=== PATIENT | female | born 1970 | race Caucasian/White ===

== ENCOUNTER 2017-06-29 20:59 | Observation (INO) | payer OTHER ==
[~2017-06-29] VITALS: Ht 162.6 cm; Wt 82.0 kg
[2017-06-29 21:01] VITALS: BP 120/84; PULSE 87; RESP 16; TEMP 98.6; O2SAT 98
--- NOTE | 2017-06-29 22:04 | RADRPT ---
EXAM DATE/TIME: 06/29/2017 21:31 [facility] COMPARISON: No previous studies available for comparison. INDICATIONS : Chest pain and headache MEDICAL HISTORY : None. SURGICAL HISTORY : None. ENCOUNTER: Initial ACUITY: 1 day PAIN SCORE: 10/10 LOCATION: Bilateral chest FINDINGS: PA and lateral views of the chest demonstrate the lungs to be symmetrically aerated without evidence of mass, infiltrate or effusion. The cardiomediastinal contours are unremarkable. Osseous structure s are intact. CONCLUSION: 1. No active disease. Tashi Cardona MD on June 29, 2017 at 22:01 Board Certified Radiologist. This report was verified electronically.
--- NOTE | 2017-06-29 22:15 | RADRPT ---
EXAM DATE/TIME: 06/29/2017 21:34 [facility] COMPARISON: No previous studies available for comparison. INDICATIONS : Dizziness. RADIATION DOSE: 56.77 CTDIvol (mGy) MEDICAL HISTORY : None SURGICAL HISTORY : None. ENCOUNTER: Initial ACUITY: 1 day PAIN SCALE: 0/10 LOCATION: cranial TECHNIQUE: Multiple contiguous axial images were obtained of the head. Using automated exposure control and adj ustment of the mA and/or kV according to patient size, radiation dose was kept as low as reasonably a chievable to obtain optimal diagnostic quality images. DICOM format image data is available electro nically for review and comparison. FINDINGS: CEREBRUM: The ventricles are normal for age. No evidence of midline shift, mass lesion, hemorrhage or acute in farction. No extra-axial fluid collections are seen. POSTERIOR FOSSA: The cerebellum and brainstem are intact. The 4th ventricle is midline. The cerebellopontine angle i s unremarkable. EXTRACRANIAL: The visualized portion of the orbits is intact. SKULL: The calvaria is intact. No evidence of skull fracture. CONCLUSION: 1. No acute intracranial abnormalities. Retention cysts in both maxillary sinuses Tashi Cardona MD on June 29, 2017 at 22:12 Board Certified Radiologist. This report was verified electronically.
[2017-06-30 00:55] VITALS: BP 110/63; PULSE 74; RESP 20; O2SAT 96
[2017-06-30 01:09] LABS: AUTOMATED NEUTROPHIL # 6.3 TH/MM3 (1.8-7.7); BASOPHIL # 0.2 TH/MM3 (0-0.2); BASOPHIL % 2.1 % (0.0-2.0); EOSINOPHIL # 0.1 TH/MM3 (0-0.4); EOSINOPHIL % 1.2 % (0.0-4.0); HEMATOCRIT 42.4 % (35.0-46.0); HEMOGLOBIN 14.5 GM/DL (11.6-15.3); LYMPH % 34.5 % (9.0-44.0); LYMPHOCYTE # 3.8 TH/MM3 (1.0-4.8); MEAN CELL VOLUME 96.8 FL (80.0-100.0); MEAN CORPUSCULAR HEMOGLOBIN 33.1 PG (27.0-34.0); MEAN CORPUSCULAR HGB CONC 34.2 % (32.0-36.0); MEAN PLATELET VOLUME 7.9 FL (7.0-11.0); MONO % 4.9 % (0.0-8.0); MONOCYTE # 0.5 TH/MM3 (0-0.9); NEUT % 57.3 % (16.0-70.0); PLATELET COUNT 252 TH/MM3 (150-450); RED BLOOD COUNT 4.37 MIL/MM3 (4.00-5.30); RED CELL DISTRIBUTION WIDTH 12.7 % (11.6-17.2)
[2017-06-30 01:32] LABS: ALBUMIN 3.6 GM/DL (3.4-5.0); ALT (GPT) 12 U/L (10-53); AST (GOT) 9 U/L (15-37); BLOOD UREA NITROGEN 8 MG/DL (7-18); CALCIUM 8.7 MG/DL (8.5-10.1); CHLORIDE 107 MEQ/L (98-107); CREATININE 0.63 MG/DL (0.50-1.00); GLOMERULAR FILTRATION RATE 102 ML/MIN (>89); GLUCOSE,RANDOM 106 MG/DL (74-106); SODIUM (NA) 139 MEQ/L (136-145)
[2017-06-30 01:36] LABS: ALKALINE PHOSPHATASE 80 U/L (45-117); TOTAL BILIRUBIN ADULT 0.7 MG/DL (0.2-1.0); TOTAL PROTEIN 6.9 GM/DL (6.4-8.2); TROPONIN I LESS THAN 0.02 NG/ML (0.02-0.05)
--- NOTE | 2017-06-30 02:02 | PD ---
HPI Chief Complaint: Chest Pain Time Seen by Provider: 02:01 Travel History International Travel<30 days: No Contact w/Intl Traveler<30days: No Traveled to known affect area: No History of Present Illness HPI 47-year-old female came to the emergency room with history of dizziness that started this morning. Patient describes the dizziness as feeling like the room was moving. This started around 6:30 in the morning. She went to work and the dizziness continued. By the mid day she started getting headache which she describes as bitemporal and frontal area. During this patient also was getting left-sided chest pain that would come and go. The chest pain was sharp in nature and lasted for a few seconds without any radiation. Patient says that she has history of headache that she gets usually once a month and associates those with her menstrual cycle. The dizziness is unusual for her. She does get chest pain occasionally as well. She attributes it to her cardiomyopathy during her 15 years ago. Patient does not have a family psychologist. She is not on any medications. She is a smoker one pack per day. [facility] Past Medical History Narrative Medical List of her past medical, surgical, social and family history is reviewed from the nursing note. Cardiovascular Problems: Yes (cardiomyopathy 2009) Tetanus Vaccination: Unknown Influenza Vaccination: No ?: Not LMP: 06/10/17 Past Surgical History Gynecologic Surgery: Yes () Social History Alcohol Use: Yes (occa) Tobacco Use: Yes (6 cig/day) Substance Use: No Allergies-Medications (Allergen,Severity, Reaction): Coded Allergies: No Known Allergies (Unverified , 06/29/17) Comments No known drug allergies. Narrative Medication Awaiting for the nurse to do the med reconciliation. Review of Systems Except as stated in HPI: all other systems reviewed are Neg Cardiovascular: Positive: Chest Pain or Discomfort Neurologic: Positive: Dizziness, Headache Physical Exam Narrative GENERAL: Fast asleep but woke up upon calling her name. Mild distress SKIN: Focused skin assessment warm/dry. HEAD: Atraumatic. Normocephalic. EYES: Pupils equal and round. No scleral icterus. No injection or drainage. ENT: No nasal bleeding or discharge. Mucous membranes pink and moist. NECK: Trachea midline. No JVD. CARDIOVASCULAR: Regular rate and rhythm. No murmur appreciated. RESPIRATORY: No accessory muscle use. Clear to auscultation. Breath sounds equal bilaterally. GASTROINTESTINAL: Abdomen soft, non-tender, nondistended. Hepatic and splenic margins not palpable. MUSCULOSKELETAL: No obvious deformities. No clubbing. No cyanosis. No edema. NEUROLOGICAL: Awake and alert. No obvious cranial nerve deficits. Motor grossly within normal limits. Normal speech. PSYCHIATRIC: Appropriate mood and affect; insight and judgment normal. Data Data Last Documented VS Vital Signs Date Time Temp Pulse Resp B/P (MAP) Pulse Ox O2 Delivery O2 Flow Rate FiO2 06/30/17 02:17 96 21 06/30/17 00:55 74 20 110/63 (79) Room Air 06/29/17 21:01 98.6 Orders Orders Electrocardiogram (06/29/17 21:20) Ckmb (Isoenzyme) Profile (06/29/17 21:20) Complete Blood Count With Diff (06/29/17 21:20) Comprehensive Metabolic Panel (06/29/17 21:20) Magnesium (Mg) (06/29/17 21:20) Prothrombin Time / Inr (Pt) (06/29/17 21:20) Act Partial Throm Time (Ptt) (06/29/17 21:20) Troponin I (06/29/17 21:20) Chest, Pa & Lat (06/29/17 21:20) Ct Brain W/O Iv Contrast(Rout) (06/29/17 ) Prochlorperazine Inj (Compazine Inj) (06/30/17 02:15) Sodium Chlor 0.9% 1000 Ml Inj (Ns 1000 M (06/30/17 02:15) Acetaminophen (Tylenol) (06/30/17 02:15) Admit Order (Ed Use Only) (06/30/17 02:14) Place In Observation (06/30/17 02:14) Activity Bed Rest With Brp (06/30/17 02:14) Vital Signs (Adult) Q4H (06/30/17 02:14) Cardiac Rhythm .As Directed (06/30/17 02:14) Notify Dr: Other .PRN (06/30/17 02:14) Notify Parameters (06/30/17 02:14) Resp Oxygen Nasal Cannula (06/30/17 ) Diet Heart Healthy (06/30/17 Breakfast) Ckmb (Isoenzyme) Profile (06/30/17 02:14) Ckmb (Isoenzyme) Profile (06/30/17 05:14) Troponin I (06/30/17 02:14) Troponin I (06/30/17 05:14) Electrocardiogram (06/30/17 02:14) Electrocardiogram (06/30/17 05:14) ^ Obtain (06/30/17 02:14) Sodium Chloride 0.9% Flush (Ns Flush) (06/30/17 02:15) Sodium Chloride 0.9% Flush (Ns Flush) (06/30/17 09:00) Acetaminophen (Tylenol) (06/30/17 02:15) Ondansetron Inj (Zofran Inj) (06/30/17 02:15) Nitroglycerin Sl (Nitrostat Sl) (06/30/17 02:15) Home Health Aid / Telemetry DOTTIE.Q8H (06/30/17 02:14) Aspirin Chew (Aspirin Chew) (06/30/17 02:15) Labs Laboratory Tests Test 06/30/17 00:50 White Blood Count 11.0 TH/MM3 Red Blood Count 4.37 MIL/MM3 Hemoglobin 14.5 GM/DL Hematocrit 42.4 % Mean Corpuscular Volume 96.8 FL Mean Corpuscular Hemoglobin 33.1 PG Mean Corpuscular Hemoglobin Concent 34.2 % Red Cell Distribution Width 12.7 % Platelet Count 252 TH/MM3 Mean Platelet Volume 7.9 FL Neutrophils (%) (Auto) 57.3 % Lymphocytes (%) (Auto) 34.5 % Monocytes (%) (Auto) 4.9 % Eosinophils (%) (Auto) 1.2 % Basophils (%) (Auto) 2.1 % Neutrophils # (Auto) 6.3 TH/MM3 Lymphocytes # (Auto) 3.8 TH/MM3 Monocytes # (Auto) 0.5 TH/MM3 Eosinophils # (Auto) 0.1 TH/MM3 Basophils # (Auto) 0.2 TH/MM3 CBC Comment DIFF FINAL Differential Comment Prothrombin Time 10.0 SEC Prothromb Time International Ratio 1.0 RATIO Activated Partial Thromboplast Time 28.1 SEC Blood Urea Nitrogen 8 MG/DL Creatinine 0.63 MG/DL Random Glucose 106 MG/DL Total Protein 6.9 GM/DL Albumin 3.6 GM/DL Calcium Level 8.7 MG/DL Magnesium Level 2.0 MG/DL Alkaline Phosphatase 80 U/L Aspartate Amino Transf (AST/SGOT) 9 U/L Alanine Aminotransferase (ALT/SGPT) 12 U/L Total Bilirubin 0.7 MG/DL Sodium Level 139 MEQ/L Potassium Level 3.9 MEQ/L Chloride Level 107 MEQ/L Carbon Dioxide Level 27.0 MEQ/L Anion Gap 5 MEQ/L Estimat Glomerular Filtration Rate 102 ML/MIN Total Creatine Kinase 46 U/L Troponin I LESS THAN 0.02 NG/ML MDM Medical Decision Making Medical Screen Exam Complete: Yes Emergency Medical Condition: Yes Medical Record Reviewed: Yes Interpretation(s) Twelve-lead EKG was reviewed by me. Normal sinus rhythm, normal axis, nonspecific ST-T wave changes. Heart rate of 71 bpm. Differential Diagnosis Non-STEMI, ACS, headache NOS Narrative Course 2:19 AM patient had blood test and CAT scan initiated in triage which were all done by the time she came to the emergency room. They are all within normal limits. I've ordered for 1 L of IV fluid bolus, IV Compazine and by mouth Tylenol for her headache. My concern however is her chest pain since she has never been worked up for this and she has risk factor in the form of her smoking and middle age. I discussed this with the patient and recommended observation in the chest pain center in to be seen by the family psychologist in the morning. She has agreed. Procedures EKG Prior to Arrival: No Diagnosis Primary Impression: Chest pain Qualified Codes: R07.9 - Chest pain, unspecified Additional Impression: Headache Qualified Codes: R51 - Headache Admitting Information Admitting Physician Requests: Observation Betsy Kraus MD Jun 30, 2017 02:02
[2017-06-30] MEDS ORDERED: ONDANSETRON HCL 4 MG/2 ML VIAL IV PUSH PRN ×2 (02:15→07:30)
[2017-06-30] MEDS ORDERED: ASPIRIN 81 MG CHEW TAB CHEW ONE (02:15)
[2017-06-30] MEDS ORDERED: NITROGLYCERIN 0.4 MG SL 25 TABS/BTL SL PRN ×2 (02:15→07:30)
[2017-06-30] MEDS ORDERED: ACETAMINOPHEN 325 MG TAB PO ONE (02:15)
[2017-06-30] MEDS ORDERED: ACETAMINOPHEN 500 MG CPLT PO PRN ×2 (02:15→07:30)
[2017-06-30] MEDS ORDERED: PROCHLORPERAZINE INJ 10 MG/2 ML VIAL IV PUSH ONE (02:15)
[2017-06-30] MEDS ORDERED: SODIUM CHLORIDE 0.9% FLUSH 10 ML FLUSH IV FLUSH PRN (02:15)
[2017-06-30] MEDS ORDERED: SODIUM CHLOR 0.9% 1000 ML INJ 1,000 ML IV ONE (02:15)
[2017-06-30 02:17] VITALS: O2SAT 96
[2017-06-30 03:50] VITALS: BP 96/55; PULSE 96; RESP 18; TEMP 98.5; O2SAT 98
[2017-06-30 04:01] LABS: TROPONIN I LESS THAN 0.02 NG/ML (0.02-0.05)
[2017-06-30 05:47] LABS: TROPONIN I LESS THAN 0.02 NG/ML (0.02-0.05)
[2017-06-30 07:49] VITALS: BP 93/51; PULSE 80; RESP 18; TEMP 98.4; O2SAT 95
--- NOTE | 2017-06-30 07:53 | HHI.HP ---
[facility] Primary Care Physician Kenzie Thornton M.D. Chief Complaint Headache and chest pain History of Present Illness 47 year old female without any significant past medical history who is a current smoker presents to ER for further evaluation of headache and chest pain. Upon awakening yesterday morning she felt dizzy. Dizziness lingered most of day later developing a migraine headache in afternoon. Went to bed early around 7pm. While laying in bed developed left anterior chest pain described " as pain inside my breast." Characterized as sharp. No radiation of pain. No associated symptoms of nausea, vomiting, dyspnea, or diaphoresis. No particular position may pain better or worse. Taking a deep breath did not make pain better or worse. No known precipitating factors or relieving factors. Chest pain resolved when headache resolved. Currently chest pain free. Review of Systems General: No fatigue,weakness, fever, chills, or recent illness change in appetite. Has been her general state of health. HEENT: Headache resolved. No nasal congestion or drainage, no dysphasia CV: As stated above. Currently chest pain-free. No palpitations, intermittent leg pain, or dizziness. RESP: No SOB, cough, wheeze, or recent URI. GI: No nausea, vomiting, bowel changes, diarrhea, constipation, pain, distention, melena, or blood in the stool. : No dysuria, urgency, frequency. EXT: No lower leg edema, no paraesthesias MS: No discomfort or change in ROM. No recent injury or known trauma. NEURO: No change in memory, difficulty with balance, LOC, motor/sensory deficits PSYCH: No anxiety, depression. Reports "high stress" work related. SKIN: No rashes, no concerning lesions Past Family Social History Allergies: Coded Allergies: No Known Allergies (Unverified , 06/29/17) Past Medical History induced cardiomyopathy Past Surgical History Reported Medications None Active Ordered Medications Current Medications Medications (Trade) Dose Ordered Sig/Lynn Route Start Time Stop Time Status Last Admin (NS Flush) 2 ml UNSCH PRN IV FLUSH 06/30/17 02:15 (NS Flush) 2 ml BID IV FLUSH 06/30/17 09:00 (Tylenol) 500 mg Q4H PRN PO 06/30/17 02:15 (Zofran Inj) 4 mg Q6H PRN IV PUSH 06/30/17 02:15 (Nitrostat Sl) 0.4 mg Q5M PRN SL 06/30/17 02:15 (Tylenol) 500 mg Q4H PRN PO 06/30/17 07:30 UNV (Zofran Inj) 4 mg Q6H PRN IV PUSH 06/30/17 07:30 UNV (Nitrostat Sl) 0.4 mg Q5M PRN SL 06/30/17 07:30 UNV (Aspirin) 325 mg DAILY PO 06/30/17 09:00 UNV Family History [place] late 50s. Social History No known hypertension, hyperlipidemia, or diabetes. Current 1pack/day smoker. Denies any alcohol or illegal drug use. Endorses sedentary lifestyle. . Past cardiac testing None Physical Exam Vital Signs Vital Signs Date Time Temp Pulse Resp B/P (MAP) Pulse Ox O2 Delivery O2 Flow Rate FiO2 06/30/17 03:50 98.5 96 18 96/55 (69) 98 06/30/17 03:15 06/30/17 02:17 96 21 06/30/17 00:55 74 20 110/63 (79) 96 Room Air 06/30/17 00:23 Room Air 06/30/17 00:22 (96) 06/29/17 21:01 98.6 87 16 120/84 (96) 98 Room Air Physical Exam GENERAL: Alert WN, WD, NAD, pleasant, female HEAD: NC, AT EYES: Sclera clear, conjunctiva without injection, pupils equal and round ENT: Mucous membranes pink and moist CV: RRR, without murmur, rub, gallop, no JVD, S1-S2 no S3-S4. Chest wall nontender with palpation. RESP: Clear lungs throughout bilateral, no crackles, wheeze, rhonchi, symmetrical chest rise, nonlabored, able to speak in full sentences ABD: Soft, NT, ND, no masses, positive bowel tones EXT: Pulses +24, no dependent edema MS: Normal tone 4 extremities, no obvious deformities, full range of motion NEURO: CN II through CN XII grossly intact, motor strength 5/5, gait WNL PSYCH: A+O 3, pleasant affect, appropriate speech, appropriate mood and affect , insight and judgment SKIN: Normal turgor, normal texture, no lesions, no rashes, even hair distribution Laboratory Laboratory Tests Test 06/30/17 00:50 06/30/17 02:54 06/30/17 04:56 White Blood Count 11.0 Red Blood Count 4.37 Hemoglobin 14.5 Hematocrit 42.4 Mean Corpuscular Volume 96.8 Mean Corpuscular Hemoglobin 33.1 Mean Corpuscular Hemoglobin Concent 34.2 Red Cell Distribution Width 12.7 Platelet Count 252 Mean Platelet Volume 7.9 Neutrophils (%) (Auto) 57.3 Lymphocytes (%) (Auto) 34.5 Monocytes (%) (Auto) 4.9 Eosinophils (%) (Auto) 1.2 Basophils (%) (Auto) 2.1 Neutrophils # (Auto) 6.3 Lymphocytes # (Auto) 3.8 Monocytes # (Auto) 0.5 Eosinophils # (Auto) 0.1 Basophils # (Auto) 0.2 CBC Comment DIFF FINAL Differential Comment Prothrombin Time 10.0 Prothromb Time International Ratio 1.0 Activated Partial Thromboplast Time 28.1 Blood Urea Nitrogen 8 Creatinine 0.63 Random Glucose 106 Total Protein 6.9 Albumin 3.6 Calcium Level 8.7 Magnesium Level 2.0 Alkaline Phosphatase 80 Aspartate Amino Transf (AST/SGOT) 9 Alanine Aminotransferase (ALT/SGPT) 12 Total Bilirubin 0.7 Sodium Level 139 Potassium Level 3.9 Chloride Level 107 Carbon Dioxide Level 27.0 Anion Gap 5 Estimat Glomerular Filtration Rate 102 Total Creatine Kinase 46 41 40 Troponin I LESS THAN 0.02 LESS THAN 0.02 LESS THAN 0.02 Result Diagram: 06/30/17 0050 06/30/17 0050 Imaging Last 48 hours Impressions Chest X-Ray 06/29/170 Signed Impressions: Service Date/Time: Thursday, June 29, 2017 21:31 - CONCLUSION: 1. No active disease. Tashi Cardona MD Head CT 06/29/17 0000 Signed Impressions: Service Date/Time: Thursday, June 29, 2017 21:34 - CONCLUSION: 1. No acute intracranial abnormalities. Retention cysts in both maxillary sinuses Tashi Cardona MD Course EKG NSR, normal axis, no st t segment changes Caprini VTE Risk Assessment Caprini VTE Risk Assessment: No/Low Risk (score <= 1) Caprini Risk Assessment Model Point Value = 1 Point Value = 2 Point Value = 3 Point Value = 5 Age 41-60 Minor surgery BMI > 25 kg/m2 Swollen legs Varicose veins or History of unexplained or recurrent spontaneous Oral contraceptives or hormone replacement Sepsis (< 1 month) Serious lung disease, including pneumonia (< 1 month) Abnormal pulmonary function Acute myocardial infarction Congestive heart failure (< 1 month) History of inflammatory bowel disease Medical patient at bed rest Age 61-74 Arthroscopic surgery Major open surgery (> 45 min) Laparoscopic surgery (> 45 min) Malignancy Confined to bed (> 72 hours) Immobilizing plaster cast Central venous access Age >= 75 History of VTE Family history of VTE Factor V Leiden Prothrombin [id number] Lupus anticoagulant Anticardiolipin antibodies Elevated serum homocysteine Heparin-induced thrombocytopenia Other congenital or acquired thrombophilia Stroke (< 1 month) Elective arthroplasty Hip, pelvis, or leg fracture Acute spinal cord injury (< 1 month) Prophylaxis Regimen Total Risk Factor Score Risk Level Prophylaxis Regimen 0-1 Low Early ambulation 2 Moderate Order ONE of the following: *Sequential Compression Device (SCD) *Heparin 5000 units SQ BID 3-4 Higher Order ONE of the following medications: *Heparin 5000 units SQ TID *Enoxaparin/Lovenox 40 mg SQ daily (WT < 150 kg, CrCl > 30 mL/min) *Enoxaparin/Lovenox 30 mg SQ daily (WT < 150 kg, CrCl > 10-29 mL/min) *Enoxaparin/Lovenox 30 mg SQ BID (WT < 150 kg, CrCl > 30 mL/min) AND/OR *Sequential Compression Device (SCD) 5 or more Highest Order ONE of the following medications: *Heparin 5000 units SQ TID (Preferred with Epidurals) *Enoxaparin/Lovenox 40 mg SQ daily (WT < 150 kg, CrCl > 30 mL/min) *Enoxaparin/Lovenox 30 mg SQ daily (WT < 150 kg, CrCl > 10-29 mL/min) *Enoxaparin/Lovenox 30 mg SQ BID (WT < 150 kg, CrCl > 30 mL/min) AND *Sequential Compression Device (SCD) Assessment and Plan Assessment and Plan #1 Chest pain-admitted to chest pain center. Ruled out with 3 sets of EKGs, cardiac enzymes, and monitored on telemetry overnight. Will be seen and evaluated by Dr. Shara De Jesus. Discussed most likely completing an exercise stress test this morning. If unremarkable, plan to discharge home with follow up with PCP. Patient agreeable to plan of care. #2 Tobacco use-strongly encouraged and stressed the importance of tobacco cessation. Instructed to quit smoking. #3 Cephalgia-resolved. Head ct no acute findings. Follow up with PCP. Tracy Parekh Jun 30, 2017 07:53
[2017-06-30 08:00] VITALS: PULSE 72
[2017-06-30] MEDS ORDERED: ASPIRIN 325 MG TAB PO SCH (09:00)
[2017-06-30] MEDS ORDERED: SODIUM CHLORIDE 0.9% FLUSH 10 ML FLUSH IV FLUSH SCH (09:00)
--- NOTE | 2017-06-30 10:04 | HHI.DCPOC ---
Discharge Care Plan Diagnosis: (1) Atypical chest pain (2) Tobacco abuse Goals to Promote Your Health * To prevent worsening of your condition and complications * To maintain your health at the optimal level Directions to Meet Your Goals Take your medications as prescribed Follow your dietary instruction Follow activity as directed Keep your appointments as scheduled Take your immunizations and boosters as scheduled If your symptoms worsen call your PCP, if no PCP go to Urgent Care Center or Emergency Room Smoking is Dangerous to Your Health. Avoid second hand smoke Call the 24-hour hour crisis hotline for domestic abuse at Tracy Parekh Jun 30, 2017 10:04
--- NOTE | 2017-06-30 18:52 | EKG ---
Date Performed: 06/30/2017 Time Performed: 05:43:25 PTAGE: 47 years EKG: Sinus rhythm LOW QRS VOLTAGE IN PRECORDIAL LEADS BORDERLINE ECG Since PREVIOUS TRACING , no significant change noted DOCTOR: Shara De Jesus Interpretating Date/Time 06/30/2017 18:52:13
--- NOTE | 2017-06-30 18:53 | EKG ---
Date Performed: 06/30/2017 Time Performed: 03:05:04 PTAGE: 47 years EKG: Sinus rhythm NORMAL ECG Since PREVIOUS TRACING , no significant change noted PREVIOUS TRACIN06/30/2017 00.33 DOCTOR: Shara De Jesus Interpretating Date/Time 06/30/2017 18:52:45
--- NOTE | 2017-06-30 18:54 | EKG ---
Date Performed: 06/30/2017 Time Performed: 00:33:13 PTAGE: 47 years EKG: Sinus rhythm LOW QRS VOLTAGE IN PRECORDIAL LEADS BORDERLINE ECG NO PREVIOUS TRACING DOCTOR: Shara De Jesus Interpretating Date/Time 06/30/2017 18:53:57
--- NOTE | 2017-06-30 19:00 | TR ---
Date Performed: 06/30/2017 Time Performed: 09:30:09 DOCTOR: Shara De Jesus DRUG LIST: CLINICAL HISTORY: REASON FOR TEST: REASON FOR ENDING: OBSERVATION: CONCLUSION: David protocol completed. Stopped sec to exceeding target heart rate and leg fatigue . Maximum OI=096 Target HR Achieved=98.0% Maximum KT=040/92 Total Exercise Time=5:01. No reprod chest pain. No ectopy. No st t segment changes to sugg ischemia. Fair exercise tolerance. Normal bp respon se. Recovery quick and unremarkable. COMMENTS:
== END 2017-06-30 13:30 | disposition home or self-care (01) ==
LOC: NEPE 20:59 → NEDA 06-30 02:17 → NEPHCDU 06-30 03:23
PROVIDERS: ADMIT Internal Medicine Cardiovascular Disease; ATTEND Internal Medicine Cardiovascular Disease
DX: R07.89 Other chest pain (principal); G43.909 Migraine, unspecified, not intractable, without status migrainosus; R51 Headache; R42 Dizziness and giddiness; F17.210 Nicotine dependence, cigarettes, uncomplicated
CPT/HCPCS: 70450; 71046; 80053; 82550; 83735; 84484; 85025; 85610; 85730; 93005; 93017; 96374; 99285; G0378; J0780; J7030